=== PATIENT | male | born 1960 | race Caucasian/White ===

== ENCOUNTER 2022-08-19 13:01 | Emergency (ER) | payer OTHER ==
[~2022-08-19] VITALS: Ht 185.4 cm; Wt 70.3 kg
[2022-08-19 14:13] VITALS: BP 155/83
[2022-08-19] MEDS ORDERED: TETANUS/DIPHTHERIA TOXOID [ADULT] 0.5 ML VIAL IM ONE (18:00)
[2022-08-19] MEDS ORDERED: CEFAZOLIN SODIUM 1 GM VIAL IM SCH (18:00)
[2022-08-19] MEDS ORDERED: LIDOCAINE HCL 1% 20 ML VIAL ONE (19:46)
== END 2022-08-19 20:52 | disposition home or self-care (01) ==
LOC: EDH 13:01
DX: S61.011A Laceration without foreign body of right thumb without damage to nail, initial encounter (principal); W27.0XXA Contact with workbench tool, initial encounter; Y93.89 Activity, other specified; Y92.89 Other specified places as the place of occurrence of the external cause; Y99.8 Other external cause status
CPT/HCPCS: 99284; 90714; 73140; 90471; 12001; 96372; J0690